=== PATIENT | male | born 1960 | race Caucasian/White ===

== ENCOUNTER 2017-10-27 21:00 | Emergency (ER) | payer BC ==
[~2017-10-27] VITALS: Ht 170.2 cm; Wt 67.1 kg
[~2017-10-27 21:00] MED LIST: CELEXA 20 MG TA20 MG PO; DOXYCYCLINE 10100 MG PO; FLEXERIL PO; HYDROCODONE-AP1 EAC6 PO; IBUPROFEN 800800 MG PO; LEVAQUIN 750 M750 MG PO; MEDROLDOSEPACK PO; MOBIC7.5 M1 PO; MOBIC7.5 MG; NOHOMEMEDICATIONS; NORCO 5-325 TA1 EACH PO; PAXIL10 MG PO; PERCOCET 5-3251 EACH PO; PROAIR HFA8.5 GM INH; PROMETHAZINE D480 ML PO; TAMSULOSIN HCL0.4 M1 PO; TESSALON PERLE100 MG PO; VENTOLIN HFA 1818 GM INH; ZPAK PO; [UNRECOGNIZED DRUG - REMARK]
[2017-10-27 21:10] VITALS: BP 142/92
== END 2017-10-27 21:26 | disposition home or self-care (01) ==
LOC: M.ERS 21:00
DX: T46.7X5A Adverse effect of peripheral vasodilators, initial encounter (principal); F17.210 Nicotine dependence, cigarettes, uncomplicated; F32.9 Major depressive disorder, single episode, unspecified; G89.29 Other chronic pain; Y92.89 Other specified places as the place of occurrence of the external cause